=== PATIENT | female | born 1950 | race Caucasian/White ===

== ENCOUNTER 2016-03-31 19:21 | Emergency (ER) | payer MEDICARE, OTHER ==
[~2016-03-31] VITALS: Ht 177.8 cm; Wt 84.1 kg
[~2016-03-31 19:21] MED LIST: AMITRIPTYLINE50 MG PO; DILTIAZEM60 MG PO; Dexilant PO; FISH OIL500 MG PO; HCTZ 25MG25 MG PO; LOPRESSOR 550 MG/TAB PO; LOVASTATIN10 MG PO; METOPROLOL SUCC50 MG PO; PrevPak PO; VITAMIN D1000 IU PO; ZANTAC 150MG T150 MG PO
[2016-03-31 19:25] VITALS: TEMP 97.5
[2016-03-31 19:44] LABS: BASO # 0.1 (0.0-0.2); BASO % 1.5 % (0.0-2.0); EOS # 0.1 (0.0-0.7); EOS % 1.1 % (0-4.0); GRAN # 2.8 (1.4-6.5); GRAN % 52.6 % (42.2-75.2); HEMATOCRIT 39.1 % (37.0-47.0); HEMOGLOBIN 12.9 g/dl (12.5-16.0); LYMPH # 1.8 (1.2-3.4); LYMPH % 34.1 % (20.0-51.0); MEAN CELL VOLUME 92 fl (80.0-100.0); MEAN CORPUSCULAR HEMOGLOBIN 30 pg (27.0-31.0); MEAN CORPUSCULAR HGB CONC 33 g/dl (33.0-37.0); MEAN PLATELET VOLUME 8.8 fl (7.4-10.4); MONO # 0.6 (0.1-0.6); MONO % 10.3 % (1.7-9.3); PLATELET COUNT 240 K/mm3 (130-400); RED BLOOD COUNT 4.27 M/mm3 (4.10-5.30); REDCELL DISTRIBUTION WIDTH-CV 14.3 % (11.5-14.5); WHITE BLOOD COUNT 5.3 K/mm3 (4.8-10.8)
[2016-03-31] MEDS ORDERED: COLACE 100100 MG/CAP PO (19:45)
[2016-03-31] MEDS ORDERED: ZYRTEC 10MG10 MG PO (19:45)
[2016-03-31] MEDS ORDERED: LASIX 40MG TABL40 MG PO (19:47)
[2016-03-31] MEDS ORDERED: CARDIZEM SR 60M60 MG PO (19:47)
[2016-03-31] MEDS ORDERED: TOPROL XL 50MG50 MG PO (19:48)
[2016-03-31] MEDS ORDERED: BENTYL 10MG10 MG/CAP PO (19:48)
[2016-03-31] MEDS ORDERED: PRILOSEC 20MG20 MG PO (19:49)
[2016-03-31 19:52] LABS: ADJUSTED CALCIUM 9.8 mg/dL (8.4-10.2); ALANINE AMINOTRANSFERASE 41 U/L (9-52); ALBUMIN 4.2 gm/dL (3.5-5.0); ALKALINE PHOSPHATASE 100 U/L (50-136); ANION GAP 11 mmol/L (7-16); BILIRUBIN,TOTAL 0.7 mg/dL (0.0-1.0); BLOOD UREA NITROGEN 19 mg/dL (7-17); CARBON DIOXIDE 28 mmol/L (22-30); CHLORIDE 106 mmol/L (98-107); CREATININE, serum 0.76 mg/dL (0.52-1.25); GLUCOSE 99 mg/dL (74-106); INR 1.1 (0.8-3.0); POTASSIUM 3.6 mmol/L (3.4-5.0); SODIUM 145 mmol/L (137-145); TOTAL PROTEIN 7.6 gm/dL (6.4-8.2)
[2016-03-31 19:54] LABS: PARTIAL THROMBOPLASTIN TIME 29.3 SECONDS (26.0-37.0)
[2016-03-31 20:14] LABS: TROPONIN-I < 0.012 ng/mL (0.000-0.034)
[2016-03-31 22:02] VITALS: BP 106/66; PULSE 55
== END 2016-03-31 22:12 | disposition home or self-care (01) ==
LOC: COL.ER 19:21
PROVIDERS: Family Medicine
DX: R07.9 Chest pain, unspecified (principal); I10 Essential (primary) hypertension
CPT/HCPCS: J1885

== ENCOUNTER → 2016-05-04 | Outpatient (CLI) | payer MEDICARE, OTHER ==
[~2016-05-04] MED LIST changes: +BENTYL 10MG10 MG/CAP PO; +CARDIZEM SR 60M60 MG PO; +COLACE 100100 MG/CAP PO; +LASIX 40MG TABL40 MG PO; +PRILOSEC 20MG20 MG PO; +TOPROL XL 50MG50 MG PO; +ZYRTEC 10MG10 MG PO
== END ==
LOC: COL.RAD 05-01 10:30
DX: D49.0 Neoplasm of unspecified behavior of digestive system (principal)

== ENCOUNTER → 2017-07-25 | Outpatient (CLI) | payer MEDICARE, OTHER ==
[~2017-07-25] MED LIST changes: +ASPIRIN 81M81 MG/TA2 PO; +CALCIUM 600 PLU1 TAB PO; +HCTZ 25MG TAB25 MG PO; +K-DUR 10 MEQ T10 MEQ PO; +OMEGA-3 1000 MG1 CAP PO; +PRAVACHOL 40MG40 MG PO; +PROTONIX 40MG T40 MG PO; +TYLENOL PM EXTR1 TA1 PO
== END ==
LOC: MC.RAD 14:16
DX: Z12.31 Encounter for screening mammogram for malignant neoplasm of breast (principal)

== ENCOUNTER → 2018-06-06 | Outpatient (CLI) | payer MEDICARE, OTHER | LOC: COL.RAD 09:45 | DX: Q63.1 Lobulated, fused and horseshoe kidney (principal); R93.2 Abnormal findings on diagnostic imaging of liver and biliary tract; R16.0 Hepatomegaly, not elsewhere classified; Z90.89 Acquired absence of other organs | CPT/HCPCS: A9585 ==

== ENCOUNTER → 2018-09-18 | Outpatient (CLI) | payer MEDICARE, OTHER | LOC: MC.RAD 09:19 | DX: Z12.31 Encounter for screening mammogram for malignant neoplasm of breast (principal); Z78.0 Asymptomatic menopausal state ==

== ENCOUNTER → 2018-12-23 | Outpatient (CLI) | payer MEDICARE, OTHER | LOC: COL.RAD 08:22 | DX: K21.9 Gastro-esophageal reflux disease without esophagitis (principal) ==

== ENCOUNTER 2019-03-16 11:27 | Observation (INO) | payer MEDICARE, OTHER ==
[~2019-03-16] VITALS: Ht 175.3 cm; Wt 155.3 kg
[2019-03-16 11:57] LABS: BASO # 0.1 (0.0-0.2); BASO % 1.2 % (0.0-2.0); EOS # 0.3 (0.0-0.7); EOS % 3.9 % (0-4.0); GRAN # 3.9 (1.4-6.5); GRAN % 59.2 % (42.2-75.2); HEMATOCRIT 43.2 % (37.0-47.0); HEMOGLOBIN 14.6 g/dl (12.5-16.0); LYMPH # 1.8 (1.2-3.4); LYMPH % 27.8 % (20.0-51.0); MEAN CELL VOLUME 93 fl (80.0-100.0); MEAN CORPUSCULAR HEMOGLOBIN 32 pg (27.0-31.0); MEAN CORPUSCULAR HGB CONC 34 g/dl (33.0-37.0); MEAN PLATELET VOLUME 9.5 fl (7.4-10.4); MONO # 0.5 (0.1-0.6); MONO % 7.4 % (1.7-9.3); PLATELET COUNT 255 K/mm3 (130-400); RED BLOOD COUNT 4.63 M/mm3 (4.10-5.30); REDCELL DISTRIBUTION WIDTH-CV 12.9 % (11.5-14.5)
[2019-03-16 12:17] LABS: INR 0.9 (0.8-3.0); PROTHROMBIN TIME 10.8 SECONDS (9.7-12.8)
[2019-03-16 12:20] LABS: PARTIAL THROMBOPLASTIN TIME 28.4 SECONDS (26.0-37.0)
[2019-03-16 12:21] LABS: ALANINE AMINOTRANSFERASE 32 U/L (9-52); ALBUMIN 4.7 gm/dL (3.5-5.0); ALKALINE PHOSPHATASE 104 U/L (50-136); ANION GAP 10 mmol/L (7-16); AST,SGOT 42 U/L (15-37); BILIRUBIN,TOTAL 0.6 mg/dL (0.0-1.0); BLOOD UREA NITROGEN 18 mg/dL (7-17); CALCIUM 9.8 mg/dL (8.4-10.2); CARBON DIOXIDE 27 mmol/L (22-30); CHLORIDE 105 mmol/L (98-107); CREATININE, serum 0.88 (0.52-1.25); GLUCOSE 109 mg/dL (74-106); LIPASE 99 U/L (23-300); POTASSIUM 3.6 mmol/L (3.4-5.0); SODIUM 142 mmol/L (137-145); TOTAL PROTEIN 8.1 gm/dL (6.4-8.2)
[2019-03-16 12:34] LABS: TROPONIN-I < 0.012 ng/mL (0.000-0.035)
[2019-03-16 16:59] VITALS: BP 124/68; PULSE 128; TEMP 98.3
[2019-03-16 20:08] VITALS: BP 113/72; PULSE 59; TEMP 97.8
--- NOTE | 2019-03-16 20:20 | NUR ---
Patient assessed at this time. Alert and oriented x 4, and able to make needs known. Reports level 2 discomfort to chest, but states it is much better. Peripheral IV to right AC. NS running at 125 ml/hr per orders. Site is without redness, warmth, swelling, and pain. Reports some SOB, but states it is much better. LS CTA in upper lobes, diminshed in lower lobes. Respirations even and unlabored. HRR. Telemetry: NS. Capillary refill less than 3 seconds. Non-tenting skin turgor. BSAx4. Abdomen soft and non-tender. No edema. Voices no questions, needs, or concerns at this time. Resting in bed watching TV. Call light is within reach.
[2019-03-16 21:34] LABS: TROPONIN-I 6 HR POST INITIAL < 0.012 ng/mL (0.000-0.034)
[2019-03-16 22:17] VITALS: BP 93/67; PULSE 67; TEMP 97.8
[2019-03-17] VITALS (8 sets, daily range): BP systolic 108–137; BP diastolic 51–73; PULSE 55–87; TEMP 98.1–98.3
--- NOTE | 2019-03-17 05:48 | NUR ---
Patient resting in bed with eyes closed most of the night. Has denied having pain and discomfort. Voices no questions, needs, or concerns. Has been NPO since midnight for Lexiscan today. Call light is within reach.
[2019-03-17 06:46] LABS: EOS # 0.2 (0.0-0.7); EOS % 4.8 % (0-4.0); GRAN # 2.3 (1.4-6.5); GRAN % 55.5 % (42.2-75.2); HEMATOCRIT 37.4 % (37.0-47.0); LYMPH # 1.3 (1.2-3.4); LYMPH % 30.1 % (20.0-51.0); MEAN CELL VOLUME 94 fl (80.0-100.0); MEAN CORPUSCULAR HEMOGLOBIN 31 pg (27.0-31.0); MEAN CORPUSCULAR HGB CONC 33 g/dl (33.0-37.0); MEAN PLATELET VOLUME 9.5 fl (7.4-10.4); MONO # 0.3 (0.1-0.6); MONO % 8.1 % (1.7-9.3); PLATELET COUNT 185 K/mm3 (130-400); RED BLOOD COUNT 3.96 M/mm3 (4.10-5.30); REDCELL DISTRIBUTION WIDTH-CV 12.8 % (11.5-14.5)
[2019-03-17 06:53] LABS: HEMOGLOBIN 12.3 g/dl (12.5-16.0)
[2019-03-17 06:59] LABS: CALCIUM 8.5 mg/dL (8.4-10.2); CHOLESTEROL RISK RATIO 4.4; CREATININE, serum 0.95 (0.52-1.25); POTASSIUM 3.7 mmol/L (3.4-5.0)
--- NOTE | 2019-03-17 07:10 | NUR ---
Report given to day shift nurse.
--- NOTE | 2019-03-17 07:15 | NUR ---
Bedside shift report received from SHEY Miguel. Pt in bed resting with family at bedside, denies need,s will continue to monitor.
[2019-03-17 08:48] LABS: COLLECTION METHOD CLEAN CATCH
[2019-03-17 09:00] LABS: MUCOUS Present /lpf; PH 5 (5-8); URINE APPEARANCE Hazy; URINE BACTERIA None Seen /hpf; URINE BILIRUBIN Negative (NEGATIVE); URINE BLOOD Negative (NEGATIVE); URINE COLOR Yellow; URINE GLUCOSE Negative (NEGATIVE); URINE KETONE Negative (NEGATIVE); URINE LEUKOCYTE ESTERASE Negative (NEGATIVE); URINE NITRATE Negative (NEGATIVE); URINE PROTEIN(semi-quant) Negative (NEGATIVE); URINE RBC 0-2 /hpf; URINE UROBILINOGEN Negative (NEGATIVE)
[2019-03-17] MEDS ORDERED: BUSPAR10 MG PO (11:15)
--- NOTE | 2019-03-17 12:54 | NUR ---
Assessment charted, pt doing well, denies pain. Went down for ray and Levar called to let me know it is negaitive. Pt has family at bedside. Dishcarge packet given and reviewed. INT dc'd, tip intact. Escorted pt out, pt left wtih all bleongings. Family to drive home, criteria met.
== END 2019-03-17 12:50 | disposition home or self-care (01) ==
LOC: COL.ER 11:27 → MEDICAL 14:26
PROVIDERS: Emergency Medicine; ADMIT Hospitalist
DX: R07.89 Other chest pain (principal); E78.5 Hyperlipidemia, unspecified; I10 Essential (primary) hypertension; R10.9 Unspecified abdominal pain; G47.00 Insomnia, unspecified; R00.1 Bradycardia, unspecified
CPT/HCPCS: A9500; C9113; J1170; J1650; J1885; J2785; J7030; Q9967

== ENCOUNTER 2019-03-20 14:29 | Emergency (ER) | payer MEDICARE, OTHER ==
[~2019-03-20] VITALS: Ht 175.3 cm; Wt 90.9 kg
[~2019-03-20 14:29] MED LIST changes: +BUSPAR10 MG PO
[2019-03-20 14:36] VITALS: TEMP 97.5
[2019-03-20 15:17] LABS: BASO # 0.1 (0.0-0.2); BASO % 1.2 % (0.0-2.0); EOS # 0.3 (0.0-0.7); EOS % 4.6 % (0-4.0); GRAN # 3.4 (1.4-6.5); HEMATOCRIT 41.1 % (37.0-47.0); HEMOGLOBIN 13.5 g/dl (12.5-16.0); LYMPH # 1.8 (1.2-3.4); LYMPH % 29.8 % (20.0-51.0); MEAN CELL VOLUME 95 fl (80.0-100.0); MEAN CORPUSCULAR HEMOGLOBIN 31 pg (27.0-31.0); MEAN CORPUSCULAR HGB CONC 33 g/dl (33.0-37.0); MEAN PLATELET VOLUME 9.7 fl (7.4-10.4); MONO # 0.5 (0.1-0.6); MONO % 8.1 % (1.7-9.3); PLATELET COUNT 230 K/mm3 (130-400); RED BLOOD COUNT 4.33 M/mm3 (4.10-5.30); REDCELL DISTRIBUTION WIDTH-CV 12.8 % (11.5-14.5)
[2019-03-20 15:27] LABS: ALANINE AMINOTRANSFERASE 37 U/L (9-52); ALBUMIN 4.5 gm/dL (3.5-5.0); ALKALINE PHOSPHATASE 94 U/L (50-136); ANION GAP 8 mmol/L (7-16); AST,SGOT 34 U/L (15-37); BILIRUBIN,TOTAL 0.5 mg/dL (0.0-1.0); BLOOD UREA NITROGEN 18 mg/dL (7-17); CALCIUM 9.9 mg/dL (8.4-10.2); CARBON DIOXIDE 27 mmol/L (22-30); CHLORIDE 108 mmol/L (98-107); CREATININE, serum 0.89 (0.52-1.25); GLUCOSE 88 mg/dL (74-106); POTASSIUM 4.2 mmol/L (3.4-5.0); SODIUM 143 mmol/L (137-145); TOTAL PROTEIN 7.7 gm/dL (6.4-8.2)
[2019-03-20 15:44] LABS: TROPONIN-I < 0.012 ng/mL (0.000-0.035)
[2019-03-20] MEDS ORDERED: LIDODERM 5% PATC1 EA TP (19:09)
[2019-03-20] MEDS ORDERED: FLEXERIL 1010 MG/TAB PO (19:09)
[2019-03-20 19:44] VITALS: BP 115/75; PULSE 50
== END 2019-03-20 19:44 | disposition home or self-care (01) ==
LOC: COL.ER 14:29
PROVIDERS: Emergency Medicine
DX: R07.89 Other chest pain (principal); R06.09 Other forms of dyspnea; I10 Essential (primary) hypertension; E78.5 Hyperlipidemia, unspecified; Z79.82 Long term (current) use of aspirin

== ENCOUNTER → 2019-04-24 | Outpatient (CLI) | payer MEDICARE, OTHER ==
[~2019-04-24] MED LIST changes: +FLEXERIL 1010 MG/TAB PO; +LIDODERM 5% PATC1 EA TP
== END ==
LOC: COL.RAD 08:41
DX: R06.02 Shortness of breath (principal)

== ENCOUNTER → 2019-05-20 | Outpatient (CLI) | payer MEDICARE, OTHER | LOC: COL.PUL 12:43 | DX: J98.6 Disorders of diaphragm (principal) | CPT/HCPCS: J7674 ==

== ENCOUNTER → 2019-07-08 | Outpatient (CLI) | payer MEDICARE, OTHER | LOC: COL.RAD 07:39 | DX: K30 Functional dyspepsia (principal); R68.81 Early satiety | CPT/HCPCS: A9541 ==

== ENCOUNTER → 2019-09-23 | Outpatient (CLI) | payer MEDICARE, OTHER | LOC: MC.RAD 11:45 | DX: Z12.31 Encounter for screening mammogram for malignant neoplasm of breast (principal); Z78.0 Asymptomatic menopausal state ==

== ENCOUNTER → 2019-09-28 | Outpatient (CLI) | payer MEDICARE, OTHER ==
[2019-09-28 08:26] LABS: CREATININE, serum 0.89 (0.52-1.25)
== END ==
LOC: COL.LAB 07:48
PROVIDERS: Thoracic Surgery (Cardiothoracic Vascular Surgery)
DX: J98.6 Disorders of diaphragm (principal)

== ENCOUNTER → 2020-02-04 | Outpatient (CLI) | payer MEDICARE, OTHER | LOC: COL.RAD 10:06 | DX: N20.0 Calculus of kidney (principal); Q63.1 Lobulated, fused and horseshoe kidney; Z90.49 Acquired absence of other specified parts of digestive tract; Z90.2 Acquired absence of lung [part of]; Z90.710 Acquired absence of both cervix and uterus | CPT/HCPCS: Q9967 ==

== ENCOUNTER → 2020-03-29 | Outpatient (CLI) | payer MEDICARE, OTHER | LOC: COL.RAD 07:28 | DX: N20.0 Calculus of kidney (principal); Q63.1 Lobulated, fused and horseshoe kidney; Z90.49 Acquired absence of other specified parts of digestive tract; Z90.710 Acquired absence of both cervix and uterus ==

== ENCOUNTER → 2020-04-01 | Outpatient (CLI) | payer MEDICARE, OTHER | LOC: COL.RAD 13:00 | DX: R10.9 Unspecified abdominal pain (principal); Z90.49 Acquired absence of other specified parts of digestive tract; Z90.710 Acquired absence of both cervix and uterus | CPT/HCPCS: Q9967 ==

== ENCOUNTER → 2020-09-23 | Outpatient (CLI) | payer MEDICARE, OTHER | LOC: MC.RAD 10:14 | DX: Z12.31 Encounter for screening mammogram for malignant neoplasm of breast (principal); Z78.0 Asymptomatic menopausal state ==

== ENCOUNTER → 2021-09-26 | Outpatient (CLI) | payer MEDICARE, OTHER | LOC: MC.RAD 09:03 | DX: Z12.31 Encounter for screening mammogram for malignant neoplasm of breast (principal); G57.22 Lesion of femoral nerve, left lower limb; M54.6 Pain in thoracic spine ==

== ENCOUNTER → 2021-10-04 | Outpatient (CLI) | payer MEDICARE, OTHER | LOC: COL.RAD 13:36 | DX: M54.6 Pain in thoracic spine (principal); G57.22 Lesion of femoral nerve, left lower limb ==

== ENCOUNTER → 2022-08-02 | Outpatient (CLI) | payer MEDICARE, OTHER | LOC: COL.RAD 12:04 | DX: K57.30 Diverticulosis of large intestine without perforation or abscess without bleeding (principal) ==

== ENCOUNTER → 2023-01-17 | Outpatient (CLI) | payer MEDICARE, OTHER | LOC: CANSCHCLI → MC.RAD 11:45 | DX: Z12.31 Encounter for screening mammogram for malignant neoplasm of breast (principal) ==

== ENCOUNTER → 2024-01-20 | Outpatient (CLI) | payer MEDICARE, OTHER | LOC: MC.RAD 08:45 | DX: Z12.31 Encounter for screening mammogram for malignant neoplasm of breast (principal) ==